=== PATIENT | female | born 1970 | race Caucasian/White ===

== ENCOUNTER 2018-05-25 14:24 | Emergency (ER) | payer OTHER ==
[~2018-05-25] VITALS: Ht 177.8 cm; Wt 77.1 kg
[2018-05-25 14:25] VITALS: BP 132/85
== END 2018-05-25 15:57 | disposition home or self-care (01) ==
LOC: ER 14:26
DX: S80.01XA Contusion of right knee, initial encounter (principal); W22.8XXA Striking against or struck by other objects, initial encounter; Y93.01 Activity, walking, marching and hiking; Y92.89 Other specified places as the place of occurrence of the external cause; Y99.8 Other external cause status
CPT/HCPCS: 73564; 99284; A4606; Z7610

== ENCOUNTER 2019-04-30 04:35 | Emergency (ER) | payer SELFPAY ==
[~2019-04-30] VITALS: Ht 165.1 cm; Wt 74.8 kg
[2019-04-30 04:40] VITALS: BP 129/81
--- NOTE | 2019-04-30 04:40 | NUR ---
PT YOAV C/O "BACK PAIN STARTED 1500 YESTERDAY. -HEAVY LIFTING." VSS. -DYSURIA AOX4. AMBULATORY. RESP EVEN AND UNLABORED. PT ON MONITOR IN BED 10 WITH AT BEDSIDE. WILL CONTINUE TO MONITOR.
[2019-04-30] MEDS ORDERED: CYCLOBENZAPRINE 10 MG TABLET ONE (04:59)
[2019-04-30] MEDS ORDERED: KETOROLAC TROMETHAMINE INJ 60 MG/2 ML VIAL IM ONE ×2 (04:59→05:00)
[2019-04-30] MEDS ORDERED: CYCLOBENZAPRINE 10 MG TABLET PO ONE (05:00)
== END 2019-04-30 05:36 | disposition home or self-care (01) ==
LOC: ER 04:36
DX: S33.5XXA Sprain of ligaments of lumbar spine, initial encounter (principal); X58.XXXA Exposure to other specified factors, initial encounter; Y93.89 Activity, other specified; Y92.89 Other specified places as the place of occurrence of the external cause; Y99.8 Other external cause status
CPT/HCPCS: 96372; 99283; J1885

== ENCOUNTER 2019-08-10 20:53 | Emergency (ER) | payer OTHER ==
[~2019-08-10] VITALS: Ht 170.2 cm; Wt 70.3 kg
[2019-08-10 20:58] VITALS: BP 146/87
== END 2019-08-10 22:50 | disposition home or self-care (01) ==
LOC: ER 20:55
DX: I83.91 Asymptomatic varicose veins of right lower extremity (principal)

== ENCOUNTER 2020-12-21 22:02 | Emergency (ER) | payer OTHER ==
[~2020-12-21] VITALS: Ht 167.6 cm; Wt 75.7 kg
[2020-12-21 22:02] VITALS: BP 146/87
[~2020-12-21 22:02] MED LIST: CEPH500C2 PO; SULF1TAB48 PO
[2020-12-21] MEDS ORDERED: SODIUM BICARBONATE 5 ML VIAL ONE (22:38)
[2020-12-21] MEDS ORDERED: LIDOCAINE 1%-EPI 1:100,000 20 ML VIAL ONE (22:38)
[2020-12-21] MEDS ORDERED: HYDROCODONE/APAP 5/325MG TABLET ONE (22:53)
[2020-12-21] MEDS ORDERED: ONDANSETRON 4 MG TAB.RAPDIS ONE (22:53)
[2020-12-21] MEDS ORDERED: SODIUM BICARBONATE 5 ML VIAL MC ONE (23:00)
[2020-12-21] MEDS ORDERED: LIDOCAINE 1%-EPI 1:100,000 20 ML VIAL IJ ONE (23:00)
[2020-12-21] MEDS ORDERED: HYDROCODONE/APAP 5/325MG TABLET PO ONE (23:00)
[2020-12-21] MEDS ORDERED: TDAP [DIPH/PERTUSSIS/TET] 0.5 ML VIAL IM ONE ×2 (23:00→23:04)
[2020-12-21] MEDS ORDERED: ONDANSETRON 4 MG TAB.RAPDIS SL ONE (23:00)
[2020-12-21] MEDS ORDERED: HYDR-4209 PO (23:06)
== END 2020-12-21 23:17 | disposition home or self-care (01) ==
LOC: ER 22:08
DX: S80.11XA Contusion of right lower leg, initial encounter (principal); L02.415 Cutaneous abscess of right lower limb; Z79.899 Other long term (current) drug therapy; X58.XXXA Exposure to other specified factors, initial encounter; Y93.89 Activity, other specified; Y92.89 Other specified places as the place of occurrence of the external cause; Y99.8 Other external cause status
CPT/HCPCS: 10060; 76882; 90471; 90715; 99284; A6407; J3490 ×2; Q0162

== ENCOUNTER 2020-12-23 21:43 | Emergency (ER) | payer OTHER ==
[~2020-12-23] VITALS: Ht 172.7 cm; Wt 75.7 kg
[~2020-12-23 21:43] MED LIST changes: +HYDR-4209 PO
[2020-12-23 22:00] VITALS: BP 105/72
--- NOTE | 2020-12-23 22:36 | NUR ---
. R GRIFFIN DRESSING CHANGE APPLIED. Patient discharged to home in stable condition. Written and verbal after care instructions given. Patient verbalizes understanding of instruction.
== END 2020-12-23 22:39 | disposition home or self-care (01) ==
LOC: ER 21:45
DX: Z48.01 Encounter for change or removal of surgical wound dressing (principal); Z79.899 Other long term (current) drug therapy

== ENCOUNTER 2022-07-21 13:09 | Emergency (ER) | payer OTHER ==
[~2022-07-21] VITALS: Ht 167.6 cm; Wt 78.9 kg
[2022-07-21 13:18] VITALS: BP 126/77
== END 2022-07-21 16:05 | disposition home or self-care (01) ==
LOC: ER 13:15
DX: S93.401A Sprain of unspecified ligament of right ankle, initial encounter (principal); Z79.899 Other long term (current) drug therapy; X58.XXXA Exposure to other specified factors, initial encounter; Y93.89 Activity, other specified; Y92.89 Other specified places as the place of occurrence of the external cause; Y99.8 Other external cause status
CPT/HCPCS: 73610-TC; 93971-TC

== ENCOUNTER 2022-09-15 19:16 | Emergency (ER) | payer OTHER ==
[~2022-09-15] VITALS: Ht 167.6 cm; Wt 47.6 kg
[2022-09-15 20:12] VITALS: BP 128/81
--- NOTE | 2022-09-15 20:20 | NUR ---
BIBRA C/O RT ANKLE PAIN, 9/10 ON PAIN SCALE. ABLE TO AMBULATE. SKIN INTACT. ALERT/ORIENTED X4.
[2022-09-15] MEDS ORDERED: KETOROLAC TROMETHAMINE INJ 60 MG/2 ML VIAL IM ONE ×2 (20:30→20:33)
--- NOTE | 2022-09-15 20:32 | NUR ---
TORADOL 60 MG/2ML IM GIVEN ON LEFT DELTOID AREA. PT TOLERATED WELL
[2022-09-15] MEDS ORDERED: PRED50TA PO (20:33)
[2022-09-15] MEDS ORDERED: COLC0.6C3 PO (20:33)
--- NOTE | 2022-09-15 20:45 | NUR ---
Patient discharged to home in stable condition. Written and verbal after care instructions given. Patient verbalizes understanding of instruction. PT ambulatory with a steady gait
== END 2022-09-15 21:15 | disposition home or self-care (01) ==
LOC: ER 19:19
DX: M25.571 Pain in right ankle and joints of right foot (principal); Z79.899 Other long term (current) drug therapy
CPT/HCPCS: 99283; 96372; J1885